=== PATIENT | female | born 1950 | race Caucasian/White ===

== ENCOUNTER 2018-04-19 16:33 | Emergency (ER) | payer MEDICARE, OTHER ==
[2018-04-19] MEDS ORDERED: AMOXicillin 250 MG CAP ONE (16:53)
[2018-04-19] MEDS ORDERED: Benzonatate 100 MG CAP ONE (16:53)
== END 2018-04-19 16:55 | disposition home or self-care (01) ==
LOC: BURERS 16:33
DX: J20.9 Acute bronchitis, unspecified (principal); E11.9 Type 2 diabetes mellitus without complications; I48.91 Unspecified atrial fibrillation; I10 Essential (primary) hypertension; Z79.01 Long term (current) use of anticoagulants; Z79.899 Other long term (current) drug therapy; Z79.84 Long term (current) use of oral hypoglycemic drugs
CPT/HCPCS: 99283

== ENCOUNTER 2018-06-22 16:13 | Emergency (ER) | payer MEDICARE, OTHER | END 2018-06-22 16:34 | disposition home or self-care (01) | LOC: BURERS 16:13 | DX: M79.605 Pain in left leg (principal); J20.9 Acute bronchitis, unspecified; E11.9 Type 2 diabetes mellitus without complications; M19.90 Unspecified osteoarthritis, unspecified site; I48.91 Unspecified atrial fibrillation; I10 Essential (primary) hypertension; Z79.01 Long term (current) use of anticoagulants; Z79.84 Long term (current) use of oral hypoglycemic drugs; Z79.899 Other long term (current) drug therapy | CPT/HCPCS: 99283 ==